=== PATIENT | female | born 1980 | race Caucasian/White ===

== ENCOUNTER 2018-10-23 22:17 | Emergency (ER) | payer SELFPAY ==
[~2018-10-23] VITALS: Ht 165.1 cm; Wt 68.0 kg
[2018-10-24] MEDS ORDERED: LORAZEPAM 2MG/ML CPJ IM ONE
[2018-10-24] MEDS ORDERED: HALOPERIDOL LACTATE 5MG/ML VIAL IM ONE
[2018-10-24] MEDS ORDERED: LORAZEPAM 2MG/ML CPJ IM STA (00:39)
[2018-10-24] MEDS ORDERED: DIPHENHYDRAMINE 50MG/ML VIAL IM ONE (00:45)
[2018-10-24] MEDS ORDERED: DIPHENHYDRAMINE 50MG/ML VIAL IM SCH (01:00)
[2018-10-24] MEDS: SODIUM CHLORIDE 0.9% 1,000 ML IV ONE ×2 (01:09→01:33)
[2018-10-24 01:45] LABS: BASOPHILS % 0.4 % (0.0-2.0); EOSINOPHILS % 0.2 % (0.0-5.0); HEMATOCRIT. 39.1 % (36.0-48.0); HEMOGLOBIN. 13.3 g/dL (12.0-16.0); LYMPHOCYTES % 13.4 % (20.0-50.0); MEAN CORPUSCULAR VOLUME 94.1 fL (81.0-99.0); MEAN PLATELET VOLUME 8.8 fl (7.4-10.4); MONOCYTES % 5.2 % (2.0-8.0); NEUTROPHILS % 80.8 % (40.0-76.0); PLATELET 337 x1000/uL (130-400); RED BLOOD CELL COUNT 4.15 mill/uL (4.2-5.4); RED CELL DISTRIBUTION WIDTH 13.7 % (11.6-14.6)
[2018-10-24 02:08] LABS: HCG SCREEN NEGATIVE
[2018-10-24 02:24] LABS: CHLORIDE 109 mEq/L (98-107)
[2018-10-24 02:29] LABS: ETHANOL BLOOD < 10 mg/dL
[2018-10-24 05:22] LABS: CLARITY URINE CLEAR (CLEAR); COLOR URINE YELLOW (YELLOW); KETONES URINE 2+ (NEGATIVE); LEUKOCYTE ESTERASE URINE TRACE (NEGATIVE); NITRITE URINE NEGATIVE (NEGATIVE); OCCULT BLOOD URINE NEGATIVE (NEGATIVE); PROTEIN URINE NEGATIVE (NEGATIVE); SPECIFIC GRAVITY URINE 1.025 (1.005-1.030); UROBILINOGEN URINE 0.2 E.U./dL (0.2-1.0)
[2018-10-24 05:36] LABS: *AMPHETAMINES SCREEN URINE NEGATIVE (NEGATIVE); *BARBITURATES SCREEN URINE NEGATIVE (NEGATIVE); *BENZODIAZEPINES SCREEN URINE NEGATIVE (NEGATIVE); *COCAINE SCREEN URINE NEGATIVE (NEGATIVE)
[2018-10-24 05:37] LABS: METHADONE URINE SCREEN NEGATIVE (NEGATIVE); OPIATES URINE SCREEN NEGATIVE (NEGATIVE); PHENCYCLIDINE URINE SCREEN NEGATIVE (NEGATIVE)
[2018-10-24 05:58] LABS: CANNABINOID URINE SCREEN PRESUMTIVE POSITIVE (NEGATIVE)
[2018-10-24] MEDS ORDERED: LORAZEPAM 1MG TABLET PO ONE (10:00)
[2018-10-24] MEDS ORDERED: ARIPIPRAZOLE 5MG TABLET PO ONE (17:45)
[2018-10-24] MEDS ORDERED: ARIPIPRAZOLE 2MG TABLET PO NR (18:00)
[2018-10-24 19:40] VITALS: BP 119/72
== END 2018-10-24 19:44 | disposition home or self-care (01) ==
LOC: ER 22:17
DX: R41.82 Altered mental status, unspecified (principal); R45.1 Restlessness and agitation; F31.9 Bipolar disorder, unspecified; F29 Unspecified psychosis not due to a substance or known physiological condition
CPT/HCPCS: 36415; 80053; 80305; 80307; 80320; 80329; 81003; 81025; 84703; 85025; 96360; 96372; 99284; J1200; J1630; J2060; J7030; Z7610; G0480